=== PATIENT | male | born 1990 | race Caucasian/White ===

== ENCOUNTER 2021-02-22 20:04 | Emergency (ER) | payer MEDICAID ==
[~2021-02-22] VITALS: Ht 182.9 cm; Wt 79.4 kg
--- NOTE | 2021-02-22 22:07 | NUR ---
Patient discharged to home in stable condition. Written and verbal after care instructions given. Patient verbalizes understanding of instructions. Stressed follow up or return to ER for worsening s/s. Patient out of ER with steady gait, no acute signs of distress, VSS, all belongings taken.
[2021-02-22 22:08] VITALS: BP 121/63
== END 2021-02-22 22:09 | disposition home or self-care (01) ==
LOC: ER 20:06
DX: S16.1XXA Strain of muscle, fascia and tendon at neck level, initial encounter (principal); S09.90XA Unspecified injury of head, initial encounter; V49.50XA Passenger injured in collision with unspecified motor vehicles in traffic accident, initial encounter; Y92.410 Unspecified street and highway as the place of occurrence of the external cause; H52.209 Unspecified astigmatism, unspecified eye
CPT/HCPCS: A4663